=== PATIENT | male | born 1965 | race Caucasian/White ===

== ENCOUNTER 2021-11-06 13:57 | Emergency (ER) | payer OTHER ==
[~2021-11-06 13:57] MED LIST: ASPIRIN CHEWABL81 MG PO; BRILINTA90 MG PO; COREG 12.5MG12.5 MG PO; LIORESAL TAB 1010 MG PO; LIPITOR TAB 2020 MG PO; NABUMETONE500 MG PO; NITROSTAT0.4 MG SL; OMEGA 3 1,0001 EACH PO; OMEPRAZOLE20 MG PO; PRIMIDONE50 MG PO; RANEXA500 MG PO; VIAGRA25 MG PO; ZOLOFT100 MG PO
[2021-11-06 15:36] LABS: HEMOGLOBIN 17.1 gm/dl (14.0-17.5); RED BLOOD COUNT 5.4 M/UL (4.20-5.50); WHITE BLOOD COUNT 6.8 K/UL (4.5-11.0)
[2021-11-06 15:52] LABS: BUN/CREATININE RATIO 21 (0-10)
== END 2021-11-06 20:50 | disposition home or self-care (01) ==
LOC: ER1 13:57
PROVIDERS: Physician Assistant
DX: R55 Syncope and collapse (principal); R42 Dizziness and giddiness; I25.10 Atherosclerotic heart disease of native coronary artery without angina pectoris; Z20.822 Contact with and (suspected) exposure to COVID-19; I10 Essential (primary) hypertension; E78.5 Hyperlipidemia, unspecified; Z95.1 Presence of aortocoronary bypass graft
CPT/HCPCS: 70450; 71045; 80053; 82550; 82553; 83874; 84484; 85025; 93005; 99285; U0002